=== PATIENT | male | born 1975 | race Two or more races ===

== ENCOUNTER 2024-02-29 07:53 | Emergency (ER) | payer MEDICAID ==
[~2024-02-29] VITALS: Ht 193 cm; Wt 130.4 kg
[2024-02-29 09:05] VITALS: BP 125/74; PULSE 72; RESP 14; TEMP 98.6; O2SAT 98
== END 2024-02-29 09:08 ==
LOC: ER 07:53
DX: S09.93XA Unspecified injury of face, initial encounter (principal); M54.2 Cervicalgia; Z88.1 Allergy status to other antibiotic agents; V09.9XXA Pedestrian injured in unspecified transport accident, initial encounter; Y93.89 Activity, other specified; Y92.89 Other specified places as the place of occurrence of the external cause; Y99.8 Other external cause status
CPT/HCPCS: 70450; 70480; 72125; 99284